=== PATIENT | female | born 1980 | race Caucasian/White ===

== ENCOUNTER 2020-06-15 08:43 | Emergency (ER) | payer MEDICAID ==
[~2020-06-15] VITALS: Ht 154.9 cm; Wt 52.0 kg
[2020-06-15] MEDS ORDERED: ONDA4TAB7 PO (09:01)
[2020-06-15] MEDS ORDERED: IBUP-1223 PO (09:02)
[2020-06-15] MEDS ORDERED: GABA300C PO (09:03)
[2020-06-15] MEDS ORDERED: AMLO-211 PO (09:04)
--- NOTE | 2020-06-15 09:04 | NUR ---
pt is a 40f bib ems complaining of increased hr, shaking, and anxiety. This started a few days ago but after starting amlodipine this morning the symptoms increased. She is tachy at 110 and appears very anxious. Provider at bedside for eval. telemetry monitor placed, continuous sp02, and cycling vitals in place. Call light within reach. warm blankets provided.
[2020-06-15] MEDS ORDERED: LORazepam 1MG TABLET ONE (09:19)
--- NOTE | 2020-06-15 09:29 | NUR ---
pt feels like her hr has gone down but she is still very tremulous and feeling anxious. medicated per emar. pt resting watching tv and on her cell phone. call light within reach.
--- NOTE | 2020-06-15 09:54 | NUR ---
breakfast tray provided. call light within reach. no further needs
[2020-06-15] MEDS ORDERED: LORazepam 1MG TABLET PO ONE (10:00)
[2020-06-15 10:34] VITALS: BP 132/78
--- NOTE | 2020-06-15 10:35 | NUR ---
Patient/Caregiver given discharge instructions and they have confirmed that they understand the instructions. Patient ambulatory with steady gait.
== END 2020-06-15 10:38 | disposition home or self-care (01) ==
LOC: ED 10:30
DX: F41.1 Generalized anxiety disorder (principal); F10.10 Alcohol abuse, uncomplicated; R20.0 Anesthesia of skin; R00.2 Palpitations; I10 Essential (primary) hypertension; F17.200 Nicotine dependence, unspecified, uncomplicated; Y90.9 Presence of alcohol in blood, level not specified
CPT/HCPCS: 93005; 99283

== ENCOUNTER 2020-08-27 10:01 | Emergency (ER) | payer MEDICAID ==
[~2020-08-27 10:01] MED LIST: AMLO-211 PO; GABA300C PO; IBUP-1223 PO; ONDA4TAB7 PO
[2020-08-27 10:24] VITALS: BP 140/96
--- NOTE | 2020-08-27 10:25 | NUR ---
PT DENIES SI, SA. PT REFUSING TO REMOVE CLOTHING. PT STATED SHE DOESN'T NEED TO BE HERE. SHE WAS CONCERNED ABOUT HER HEAVY DRINKING AND THE THOUGHTS THAT ARE DISTURBING HER, WHICH IS WHY SHE REQUESTED AN AMBULANCE DURING HER WELFARE CHECK. PT ASKING TO TAKE A TAXI HOME. ERP AWARE. WILL CONTINUE TO MONITOR.
== END 2020-08-27 10:57 | disposition home or self-care (01) ==
LOC: ED 10:51
DX: F10.220 Alcohol dependence with intoxication, uncomplicated (principal); I10 Essential (primary) hypertension; F17.210 Nicotine dependence, cigarettes, uncomplicated; Y90.0 Blood alcohol level of less than 20 mg/100 ml
CPT/HCPCS: 99406

== ENCOUNTER 2020-10-05 01:22 | Emergency (ER) | payer MEDICAID ==
[~2020-10-05] VITALS: Ht 152.4 cm; Wt 50.0 kg
[2020-10-05 01:26] VITALS: BP 141/96
--- NOTE | 2020-10-05 01:41 | NUR ---
THIS IS A 40F BIB [facility], PT STS SHE ATTEMPTED TO CHECK INTO [facility] TO GET HELP AND WAS TOO INTOXICATED TO DO SO. PER [facility] PT MAKING STATEMENTS OF ATTEMPTING TO DRINK HERSELF TO AND "WOULD BE IN A COUPLE DAYS" PT CHANGED INTO GOWN BELONGINGS BAGGED AND LABELED.
[2020-10-05] MEDS ORDERED: LORazepam 1MG TABLET PO ONE (02:00)
[2020-10-05] MEDS ORDERED: LORazepam 1MG TABLET ONE (02:02)
--- NOTE | 2020-10-05 02:10 | NUR ---
PT MEDICATED PER JUN 30 RIGHTS VERIFIED, PT CALM AND COOPERATIVE WITH STAFF, URINE SENT TO LAB
[2020-10-05 02:17] LABS: BASOPHILS % (AUTO) 1 % (0-1); EOSINOPHILS % (AUTO) 1 % (1-7); LYMPHOCYTES % (AUTO) 43 % (22-44); MEAN CORPUSCULAR HEMOGLOBIN 32.1 pg (27.0-34.8); MEAN CORPUSCULAR HGB CONC 33.8 g/dL (32.4-35.8); MEAN PLATELET VOLUME 7.4 fL (7.4-10.4); MONOCYTES % (AUTO) 6 % (2-9); NEUTROPHILS % (AUTO) 49 % (42-75); PLATELET COUNT 233 x10^3/uL (130-400); RED BLOOD COUNT 4.59 x10^6/uL (3.82-5.3); RED CELL DISTRIBUTION WIDTH 21.6 % (9.6-15.2)
[2020-10-05 02:19] LABS: HCG UR SG 1.006 (1.003-1.030)
[2020-10-05 02:25] LABS: ALBUMIN 3.4 g/dL (3.4-5.0); ANION GAP 10 mmol/L (5-15); CALCIUM 7.8 mg/dL (8.5-10.1); CHLORIDE 111 mmol/L (98-107); CREATININE 0.53 mg/dL (0.55-1.02)
[2020-10-05 02:30] LABS: AMPHETAMINE SCREEN, URINE Negative (Negative); BARBITURATE SCREEN, URINE Negative (Negative); BENZODIAZEPINE SCREEN, URINE Negative (Negative); CANNABINOID SCREEN, URINE Negative (Negative); COCAINE SCREEN, URINE Negative (Negative); METHADONE SCREEN, URINE Negative (Negative); OPIATE SCREEN, URINE Negative (Negative)
--- NOTE | 2020-10-05 03:15 | NUR ---
PT RESTING ON GURNEY EYES CLOSED, NO NEEDS AT THIS TIME. SITTER IN SIGHT FOR SAFETY
--- NOTE | 2020-10-05 04:25 | NUR ---
PT AWAKENING, PT DENIES ALL SI/ HI. STS SHE JUST WANTS TO GET RESOURCES TO GET HER DRINKING UNDER CONTROL. ERP UPDATED
--- NOTE | 2020-10-05 05:15 | NUR ---
Patient/Caregiver given discharge instructions and they have confirmed that they understand the instructions. Patient ambulatory with steady gait. NAD, all questions answered appropriately, denies additional needs at this time. No personal belongings left in room after discharge.
== END 2020-10-05 05:30 | disposition home or self-care (01) ==
LOC: ED 01:44
DX: F10.220 Alcohol dependence with intoxication, uncomplicated (principal); R45.851 Suicidal ideations; F17.210 Nicotine dependence, cigarettes, uncomplicated; Y90.0 Blood alcohol level of less than 20 mg/100 ml; I10 Essential (primary) hypertension; Z91.14 Patient's other noncompliance with medication regimen
CPT/HCPCS: 36415; 80048; 80299; 80307; 80320; 80329; 81025; 82040; 85025; 99283; 99406; G0480